=== PATIENT | male | born 1985 | race Caucasian/White ===

== ENCOUNTER 2016-11-29 22:14 | Emergency (ER) | payer BC, OTHER, SELFPAY ==
[~2016-11-29] VITALS: Ht 177.8 cm; Wt 135.3 kg
[2016-11-29 22:15] VITALS: BP 146/102
== END 2016-11-29 23:25 | disposition home or self-care (01) ==
LOC: ED 23:19
DX: J00 Acute nasopharyngitis [common cold] (principal); J02.9 Acute pharyngitis, unspecified
CPT/HCPCS: 93005

== ENCOUNTER 2017-08-11 09:02 | Emergency (ER) | payer BC, OTHER ==
[~2017-08-11] VITALS: Ht 175.3 cm; Wt 138.0 kg
[2017-08-11 09:04] VITALS: BP 138/90
[2017-08-11 09:55] LABS: RAPID INFLUENZA A Negative (Negative); RAPID INFLUENZA B POSITIVE (Negative)
== END 2017-08-11 10:31 | disposition home or self-care (01) ==
LOC: ED 10:25
DX: J10.1 Influenza due to other identified influenza virus with other respiratory manifestations (principal)
CPT/HCPCS: 71020; 87400; 99285

== ENCOUNTER 2017-11-30 20:40 | Emergency (ER) | payer BC, OTHER ==
[~2017-11-30] VITALS: Ht 177.8 cm; Wt 141.2 kg
[2017-11-30 20:42] VITALS: BP 147/89
[2017-11-30] MEDS ORDERED: ALBUTEROL/IPRATROPIUM 2.5MG/0.5MG, 3 ML ONE (21:13)
[2017-11-30 21:23] LABS: BASOPHILS # (AUTO) 0.08 x10^3/uL (0-0.1); BASOPHILS % (AUTO) 1 % (0-1); EOSINOPHILS # (AUTO) 0.59 x10^3/uL (0-0.4); EOSINOPHILS % (AUTO) 7 % (1-7); LYMPHOCYTES # (AUTO) 1.73 x10^3/uL (1-3.4); LYMPHOCYTES % (AUTO) 21 % (22-44); MD NO; MEAN CORPUSCULAR HEMOGLOBIN 29.2 pg (27.5-34.5); MEAN CORPUSCULAR HGB CONC 33.4 g/dL (33.2-36.2); MEAN CORPUSCULAR VOLUME 87.6 fL (81-97); MEAN PLATELET VOLUME 8.5 fL (7.4-10.4); MONOCYTES # (AUTO) 1.23 x10^3/uL (0.2-0.8); MONOCYTES % (AUTO) 15 % (2-9); NEUTROPHILS # (AUTO) 4.46 x10^3/uL (1.8-6.8); NEUTROPHILS % (AUTO) 55 % (42-75); PLATELET COUNT 360 x10^3/uL (130-400); RED BLOOD COUNT 5.09 x10^6/uL (4.38-5.82); RED CELL DISTRIBUTION WIDTH 14.3 % (9.4-14.8)
[2017-11-30] MEDS ORDERED: ALBUTEROL/IPRATROPIUM 2.5MG/0.5MG, 3 ML NPPB ONE (21:30)
[2017-11-30 21:35] LABS: ALBUMIN 3.3 g/dL (3.4-5.0); ANION GAP 8 mmol/L (5-15); CALCIUM 8.7 mg/dL (8.5-10.1); CHLORIDE 107 mmol/L (98-107)
[2017-11-30 21:36] LABS: CREATININE 1.01 mg/dL (0.7-1.3)
== END 2017-11-30 22:34 | disposition home or self-care (01) ==
LOC: ED 22:32
DX: J20.8 Acute bronchitis due to other specified organisms (principal); J45.909 Unspecified asthma, uncomplicated; B96.89 Other specified bacterial agents as the cause of diseases classified elsewhere
CPT/HCPCS: 36415; 71046; 80048; 82040; 85025; 87081; 87880; 93005; 94640; 99285; J7512; J7620